=== PATIENT | female | born 1985 | race Caucasian/White ===

== ENCOUNTER 2021-02-18 09:00 | Outpatient (RCR) | payer MEDICAID, SELFPAY ==
[2021-02-11 09:48] VITALS: BMI 52.2
--- NOTE | 2021-02-18 09:00 | BH.SGPN.GN ---
Behaviors/Verbalizations/Mental Status: []Client alert and oriented, casually dressed. Eye contact poor. Motor activity appropriate. Speech slowed. Affect flat, mood anxious and dysthymic. Thoughts linear, logical, no signs of hallucinations or delusions. Reviewed client?s symptom tracker, no risk or thoughts of suicide ideation, plan, or intent as of 02/18/21. Client Response/Progress/Benefit: []Client responded well to session, engaged throughout and participated in group discussion. Client reported feeling ?anxious, nervous, and scared? this morning. Client reported feeling anxious about her drive home from IOP. Benefited from group as client gained feedback from other group members on ways to improve anxiety on her drive home. Client stated she would listen to calming music on her drive. Client appeared anxious as she had short responses to questions and did not appear ready to elaborate. Client reported her goal for IOP is to manage her anxiety and depression symptoms so she can return to work to better provide for her family. Will continue IOP to promote the use of healthy coping skills, improve daily functioning, and prevent decompensation. Narrative Note: []
--- NOTE | 2021-02-18 10:10 | BH.SGPN.GN ---
Behaviors/Verbalizations/Mental Status: []Client alert and oriented, casually dressed and fair grooming. Eye contact poor. Motor activity restless. Speech within normal limits. Affect constricted, mood depressed and anxious. Thoughts linear, logical, no signs of hallucinations or delusions. Client Response/Progress/Benefit: []Pt passive participant AEB pt providing limited input throughout discussion, appeared to listen to group discussion AEB pt nodding at others comments. Pt connected with the topic of resilience and agreed with the group that it is possible to become more resilient. Listened to group identify the positive and negative forces in life that impact a person?s resilience. Listened to discussion about barriers to resiliency. Pt stated environment impacts ability to be resilient. Explained if you are treated poorly it is hard to be resilient. Pt seemed to benefit from increasing awareness of factors that influence personal resilience and understand importance of improving resiliency. Pt's first week in IOP. Pt to continue IOP to increase healthy coping, maintain safety and prevent decompensation. Narrative Note: []
--- NOTE | 2021-02-18 11:15 | BH.SGPN.GN ---
Behaviors/Verbalizations/Mental Status: []Client alert and oriented, casually dressed and groomed. Eye contact fair to good. Motor activity appropriate. Speech within normal limits. Affect constricted, mood depressed and anxious. Thoughts linear, logical, no signs of hallucinations or delusions. Client Response/Progress/Benefit: [] Client new to IOP tx. She responded well to session, mostly engaged AEB taking notes and listening throughout discussion. Client did not provide input but attentive during the discussion of how each resiliency component can help increase personal resiliency. Client took on a passive participatory role within the small group in identifying ways to practice each of the resiliency traits reviewed. Client took a participatory role within the activity and followed direction as group worked to identify strategies for improving group?s ability to reach identified goal.. Appeared to benefit from group as client discussed how resiliency impacts daily functioning. Declined to share the personal resilience trait she identified as wanting to improve upon. Will continue IOP tx to improve coping skill repertoire, reduce depression, and prevent decompensation. Narrative Note: []
--- NOTE | 2021-02-18 14:43 | BH.MTP_ITS ---
Master Treatment Plan - Patient Information Program Physician:: Dr. Gail Barrientos Primary Therapist:: CHRISTA Gayle - Estimated LOS Estimated LOS (in weeks):: 6 Problem/Goal #1 - Problem/Goal #1 Stated Goal:: Client will reduce depressive symptoms, guilt, and hopelessness due to major depressive disorder. Description of Barriers: Unable to work due to stress, constant health anxiety about her children, and panic attacks, history of trauma, and negative thinking. Severe avoidance in which client does not like to drive or leave her home. Functional Impact: The patient is a 35-year-old single female with a history of depression and anxiety who was referred to the [facility] behavioral health IOP by her prior manager social services due to worsening mental health symptoms impacting ability to function. Reports primary stressors impacting mental health include anxiety about the pandemic and her son?s health. Client currently endorses daily panic attacks, avoidance of leaving house or driving, ruminations, and constant worries. Client also endorses a depressed mood, hopelessness, worthlessness, guilt, decreased concentration, low energy, low motivation, and isolative behaviors. Client denies active suicidal ideations, plan, or intent. Client?s symptoms are interfering with her ability to work as she has been unemployed due to anxiety since 2019, impacting her ability to take care of herself, and impact her relationships. Goal Relevant Strengths/Supports: Client presents as motivated, kind, and open- minded to learning new skills. Lives with her sister and reports her mother is also supportive. Children are her protective factors. - Objectives Objective #1 Stated Objective: Client will learn and utilize 2-3 healthy coping strategies to better manage depressive symptoms as shown by a reduced DSM-5 scores for depression. Interventions: Through group and individual sessions, therapist will help client identify triggers and warning signs of depression and emotional dysregulation including emotional, physical, and behavioral changes. Therapist will teach client various coping skills to manage her symptoms and give client tangible resources to use to regulate emotions. Therapist will use cognitive restructuring techniques and help client gain awareness of negative thoughts that reinforce guilt and depression. Therapist will provide psychoeducation on maintenance cycles and help client learn ways to break unhealthy maintenance cycles. Therapist will help client incorporate behavioral activation and assist client in setting SMART goals. Discharge Criteria: Client will have met this goal when he can report learning and using at least 2 coping skills to manage depressive symptoms. Additionally, client will have met this goal when his depressive symptoms have reduced on the DSM-5 scale. Target Date: 04/01/21 Review Date: 03/18/21 Objective #2 Stated Objective: Client will identify at least 2-3 negative self-talk messages used to reinforce negative core beliefs and replace thoughts with positive, realistic messages. Interventions: Therapist will help client identify distorted, negative beliefs about self and replace with more realistic, affirmative messages. Therapist will use CBT to help client increase insight to the connection between thoughts, emotions, and behaviors. Therapist will encourage client to practice thought challenging. Discharge Criteria: Client will have achieved this goal when can verbalize at le ast 2 negative self-talk messages and effectively replace those thoughts with affirmative messages. Target Date: 04/01/21 Review Date: 03/18/21 Problem/Goal #2 - Problem/Goal #2 Stated Goal:: Client will reduce anxiety and panic symptoms while increasing ability to function on daily basis. Description of Barriers: Unable to work due to stress, constant health anxiety about her children, and panic attacks, history of trauma, and negative thinking. Severe avoidance in which client does not like to drive or leave her home. Functional Impact: The patient is a 35-year-old single female with a history of depression and anxiety who was referred to the [facility] behavioral health IOP by her prior manager social services due to worsening mental health symptoms impacting ability to function. Reports primary stressors impacting mental health include anxiety about the pandemic and her son?s health. Client currently endorses daily panic attacks, avoidance of leaving house or driving, ruminations, and constant worries. Client also endorses a depressed mood, hopelessness, worthlessness, guilt, decreased concentration, low energy, low motivation, and isolative behaviors. Client denies active suicidal ideations, plan, or intent. Client?s symptoms are interfering with her ability to work as she has been unemployed due to anxiety since 2019, impacting her ability to take care of herself, and impact her relationships. Goal Relevant Strengths/Supports: Client presents as motivated, kind, and open- minded to learning new skills. Lives with her sister and reports her mother is also supportive. Children are her protective factors. - Objectives Objective #1 Stated Objective: Client will identify 2-3 anxiety/panic triggers and 2 coping skills to use when feeling anxious to manage anxiety as shown by decreasing her DSM-5 scores for anxiety. Interventions: Therapist will provide education on anxiety, avoidance behaviors, and maintenance cycles. Therapist will help client explore personal symptoms and warning signs of anxiety. Therapist will teach client coping skills to improve emotional regulation, mindfulness, and distress tolerance to help client cope with anxiety in the moment. Discharge Criteria: Client will have accomplished this goal when she can identify at least 2 triggers and report using 2 coping skills to manage anxiety. Additionally, client will have accomplished this goal when her DSM-5 scores show a reduction for anxiety. Target Date: 04/01/21 Review Date: 03/18/21 Objective #2 Stated Objective: Client will identify 2-3 cognitive distortions that lead to rumination and learn 2-3 ways to manage these thoughts to better manage anxiety Interventions: Therapist will provide education on the most common cognitive distortions and teach client the connection between thoughts, emotions, and feelings. Therapist will assist client in identifying, challenging, and replacing dysfunctional thoughts with positive, more realistic thoughts. Therapist will use CBT and DBT techniques to help client gain awareness of thinking errors and learn how to more effectively handle negative thoughts. Therapist will also use self-compassion to help client set more realistic expectations for herself. Discharge Criteria: Client will have accomplished this goal when can identify at least 2 cognitive distortions and at least 2 coping skills to manage negative thoughts. Target Date: 04/01/21 Review Date: 03/18/21
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
--- NOTE | 2021-02-18 14:44 | BH.MDN_ITS ---
Multi-Disciplinary Note - Note 30-min Individual Time Started:: 12:08 Date: 02/18/21 Purpose of session/treatment goals addressed:: The purpose of this session was to gather information on client's current stressors, symptoms, and treatment goals. Another goal was to build rapport and provide psychoeducation. Eye Contact:: Fair Motor Activity:: Appropriate Appearance:: Casual Speech:: Appropriate, Soft Mood:: Anxious, Depressed Affect:: Constricted, Congruent Thoughts:: Linear, Logical, No evidence of hallucinations/delusions noted Staff Interventions:: Therapist used active listening and open-ended questions to explore client's current stressors, symptoms, mental health treatment history, and explore treatment goals. Therapist used strengths-based approaches to build rapport and provide emotional support. Therapist provided psychoeducation on Anxiety. Client Response:: Client responded well to session, open to meeting with therapist. Client stated she has been in therapy on various occasions in the past but has found this to be ineffective as she feels her counselors never truly listened to her or ?had other things that were more of a priority?. Discussed struggling to trust therapy and others as a result of prior negative experiences. Shared often feeling her needs are not important and struggling with negative self-talk and low self-esteem. She expressed that this his impacted her ability to complete occupational tasks as she often struggles with significant intrusive thoughts regarding her job performance. Shared anxiety about her work performance has led to calling off work on multiple occasions and ultimately losing her job in the past. Additionally, client notes significant anxiety about being away from her three children as she is a single mother and has limited support. Client explained that her son has multiple medical issues which increases her anxiety about being away from the home. Reported ?I self- sabotage. I get anxious about being away from my son and I call off work. I?ve even used self-harming to get a doctor?s note so I could have a reason to call off?. Denies any recent self-harming episodes since 2019. Denies any current active SI, plan, or intent as of this date. Shared struggling to identify any healthy coping skills she currently uses. Reports her mother is her only support. Client identified current treatment goals to be: improve daily functioning, improve self-esteem, as well as reduce anxiety and daily panic sx in order to return to work. Client receptive to emotional support and encouragement. Receptive of psychoeducation provided on anxiety and safety be haviors. Risks/Concerns:: Client denies any active suicidal ideations, plan, and intent as of 02/18/21. Protective factors include her children. Reports motivation to improve sx management. Progress Toward Goals/Plan:: Client's first week of IOP, reports she is trying to be more comfortable in the treatment environment as she is often anxious about being in groups with others. Reports willingness to continue working to improve comfort in group environment. Client endorses a depressed mood, low self-esteem, ruminations, daily panic, and constantly feeling anxious. Client's symptoms have been impacting her ability to work and ability to engage with others. Will continue IOP tx to prevent decompensation, reduce intensity of symptoms, and improve daily functioning. Time Stopped:: 12:33
--- NOTE | 2021-02-20 09:15 | BH.NA_ITS ---
Physical Data - Vital Signs Pulse Rate: 62 Blood Pressure: 127/64 - Height/Weight Height: 1.75 m Weight:: 149.685 kg Weight in Pounds: 330.0 lbs Current Medication Compliance - Medication Compliance Do you take your medication as prescribed?: Yes Nutritional History - Appetite Nutritional Instructions:: If client shows signs of a swallowing problem, weight change of 10 pounds or more in the last month, or is on a diabetic diet, the physician will review and request a dietitian consult, as appropriate. All unintentional weight loss will be referred to the physician for decision on need for dietitian consult. Describe your appetite:: Fair Additional nutritional information:: Client reports weight loss after bariatric surgery in August 2020. Functional Assessment - Sleep Pattern Describe any problems with sleeping: Client states she sleeps about 5-6 hours per night. - Activities Motor Activity:: Functional Sensory/Communication Assess - Vision Problems Do you have any vision problems?: Glasses - Communication Problems Do you have difficulty understanding what people are saying?: No Medical Problems/History - Cardiac Conditions Cardiovascular: Hypertension, Hyperlipidemia - Metabolic Conditions Metabolic: Diabetes - Gastrointestinal Conditions Gastrointestinal: Dyspepsia Comments:: IBS - Pain Assessment Do you have acute or chronic pain?: No - Family History Family History: Family History (Last Reviewed 11/26/20 @ 08:[address] Villa Hanson MD) Other Anemia Anxiety Arthritis Asthma Autoimmune disorder Bleeding disorder Cancer Depression Diabetes High cholesterol Hypertension Kidney disease Ovarian cancer Seizures Suicide attempt Surgical History - Surgical History Have you had any surgeries? If so, list type and date:: Yes - bariatric surgery 08/2020, cyst removal Substance Abuse - Substance Abuse Please describe substance abuse in the last 30 days:: Client denies alcohol, tobacco or drug use. Client states she occasionally drinks tea with caffiene. Mental Status Summary - Mental Status Significant Findings/Observations on Appearance and Mood:: Client is alert and oriented x4. Client is casually groomed. Client is wearing a mask due to pandemic. Client makes poor eye contact. Client's voice is normal rate, but soft volume at times. Client answers questions minimally when asked. Client makes logical associations with normal processing. Client denies delusions/hallucinations. Client denies SI. Suicide Assessment - Suicidal Ideation Are you currently or have you been suicidal in the past?: Yes - denies SI Suicidal Intentional Rating Scale (SIRS): Suicidal thoughts (past) Physician Notification: If Active suicidal thoughts/Will not contract for safety is checked, contact physician and document in the Physician Notification section below. Past Psychiatric History - MH Treatment Hx Past Psychiatric Medications:: Celexa, Topamax, Ambien, Ativan Age of first mental health symptoms: Client states she was diagnosed with anxiety/depression many years ago. Describe (age, circumstance, etc) any past hospitalizations: Suicide attempt 14 years ago. Current providers for mental health treatment (counselor, psychiatrist, manager case management, etc.): CM at [facility]. Fall Risk Assessment - Age Age: Less than 60 - Mental Status Mental Status: Willing & able to ask for assistance when needed - Physical Status Physical Status: No problems - Impairments Impairments: None - Elimination Elimination: Continent AND independent - Gait or Balance Gait or Balance: Walks independently - Hx of Falls History of falls in the past 6 months: No known history - Medications/Substances Psychotropics:: Antidepressants Others:: Antihypertensives Medications/substances used within the past 24 hours or ordered to administer: 1-2 of the medications/substances listed above - Total Score Total Points:: 1 RN Summary of Impressions - Impressions Recommendations: Include psychiatric and medical issues, treatment planning recommendations, and discharge planning needs. Impressions: Psychiatric Issues: Major depressive disorder, recurrent, severe without psychosis; generalized anxiety disroder, health anxiety - Level of Care How do the client's current symptoms and functional deficits support need for this level of care?: Client was referred to IOP by keycase assembler for mental health impacting her ability to function. Client states her anxiety and depression symptoms have been worsening lately. Client reports high anxiety about leaving her house, states she gets panic attacks at times when she has to leave or house or even at home around certain family members. Client reports SOB and chest pressure with panic attacks. Client reports a history of self-harm, stating the last time she hit her wrist on stuff to hurt herself was about 1.5 years ago. Client has many small scabs on her arms presently and is picking at scabs during assessment. Client reports increased anxiety about driving. Client states she did have increased anxiety about work, and has not worked in 1.5 years. Client endorses isolation, hopelessness, anhedonia, and self-sabotage behavior regarding the idea of working. Client denies SI. IOP will promote gains and prevent further decompensation while providing social support and skills training.
[2021-02-20 10:02] VITALS: BP 127/64; PULSE 62
--- NOTE | 2021-02-20 11:10 | BH.SGPN.GN ---
Behaviors/Verbalizations/Mental Status: []Client alert and oriented, casually dressed, hygiene appeared to be tended to. Eye contact fair. Motor activity appropriate. Speech within normal limits. Affect constricted, mood dysthymic. Thoughts linear, logical, no signs of hallucinations or delusions. Client Response/Progress/Benefit: []Client engaged participant AEB client taking notes during discussion and listened attentively to peers. Participated in group discussion on the various areas of self-care, benefits, and types of self-care activities for each area. Client completed worksheet in which client identified current self-care practices and what self-care activities client wants to start using. Client reported she will focus on improving social self-care as client believes this will help client connect with her children which will also improve her mood. Client stated she will do this by scheduling an activity to do with her kids that is outside. Appeared to benefit from reflecting on the area of self-care client can improve and setting a small goal. First week of IOP tx. Will continue IOP tx to prevent decompensation, improve daily functioning, and increase healthy coping skills. Narrative Note: []
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
--- NOTE | 2021-02-20 12:34 | BH.DR.ITP ---
Initial Treatment Plan - Patient Information Visit Information: ADMISSION DATE: EXPECTED LOS: 4-6 weeks - Problems/Symptoms Problem #1:: Depression Symptom:: Sadness, crying, anhedonia, hopelessness, decreased sleep, low energy level, decreased concentration, guilt Problem #2:: Anxiety Symptom:: Worry, rumination, avoidance, nightmares, flashbacks, panic attacks
--- NOTE | 2021-02-22 09:00 | BH.SGPN.GN ---
Behaviors/Verbalizations/Mental Status: []Client alert and oriented, casually dressed. Eye contact fair. Motor activity appropriate. Speech within normal limits. Affect constricted, mood anxious and dysthymic. Thoughts linear, logical, no signs of hallucinations or delusions. Reviewed client?s symptom tracker, no risk or thoughts of suicide ideation, plan, or intent as of 02/22/21. Client Response/Progress/Benefit: []Client responded well to session, engaged throughout and participated in group discussion. Client reported feeling ?anxious and worried? this morning. Client reported needing to set a boundary with her sister as her sister often drops her children off at client?s house without asking for permission and it interrupts client?s personal time homeschooling her own children. Client reported other dynamics that impact their relationship as her sister lives next door and is also client?s landlord. Client reported being fearful to set a boundary with her sister as she is afraid of being kicked out. Benefited from group as other group members gave positive feedback and insight to client and her stressors. Progress noted as client was vulnerable and shared her stressors with group. Will continue IOP to promote the use of healthy coping skills, improve daily functioning, and set appropriate boundaries with sister. Narrative Note: []
--- NOTE | 2021-02-22 10:10 | BH.SGPN.GN ---
Behaviors/Verbalizations/Mental Status: []Client alert and oriented, casually dressed and groomed. Eye contact good. Motor activity appropriate. Speech within normal limits. Affect congruent, mood depressed and anxious. Thoughts linear, logical, no signs of hallucinations or delusions. Client Response/Progress/Benefit: []Client was an engaged participant AEB taking notes and contributing to discussion. Connected with group topic of perspective and the impacts of one?s perspective on mental health. Client noted struggling with societal stigma impacting her perspective of self. Client worked with the group to identify how a negative perspective can impact mental health which included: self-fulfilling prophecy, avoiding or giving up on treatment, not opening up to others, and withdrawing or isolating. Client reported low self-esteem and increased avoidance as result of negative perspective. Client appeared to benefit from increasing understanding of mental health benefits of a positive perspective and potential consequences to progress when perspective is negative. Progress noted in improved engagement in tx environment. Continues to struggle with combating distortions and avoidance. Client will continue IOP tx to promote gains, improve self-confidence, improve healthy coping, and prevent decompensation. Narrative Note: []
--- NOTE | 2021-02-22 11:10 | BH.SGPN.GN ---
Behaviors/Verbalizations/Mental Status: []Eye contact is good. Alert and oriented. Motor activity is appropriate. Appearance is casual. grooming is appropriate. Speech is Appropriate. Mood is dysthymic. Affect is dysthymic. Thoughts are linear and logical. No evidence of psychosis or hallucinations. Client Response/Progress/Benefit: []Pt engaged participant AEB pt providing input throughout session, listening attentively to peers and completing strengths exploration handout. Pt did struggle to identify strengths and client recognizes that she tends to disqualify her positives and be her ?own worst critic.? Pt shared some of the strengths she identified were patience, common sense, and empathy. Pt stated these strengths will help client?s mental health recovery by reducing frustration with self, gaining awareness, and practicing self-compassion. Pt seemed to benefit from increased awareness of personal strengths and improved understanding how perspective can impact view of self. Pt is to continue IOP tx to prevent decompensation, improve mood stability, and learn healthy coping skills. Narrative Note: []
--- NOTE | 2021-02-25 09:05 | BH.COMM ---
Communication Note - Communication with Client Communication Note: Pt cancelled group today. States that her daughter is ill and cannot make it.
--- NOTE | 2021-02-27 10:09 | BH.COMM ---
Communication Note - Communication with Client Communication Note: Spoke with pt. Her daughter was tested for COVID yesterday and they are awaiting results. Per protocol asked her to remain home to negative test. Pt has no symptoms
--- NOTE | 2021-03-06 11:08 | BH.SGPN.GN ---
Behaviors/Verbalizations/Mental Status: []Client alert and oriented, appearance is casual, but client reports not showering. Eye contact good. Motor activity appropriate. Speech within normal limits. Affect flat, mood dysthymic. Thoughts linear, logical, no signs of hallucinations or delusions Client Response/Progress/Benefit: []Client responded well to session as evidenced by client listening attentively to others and receptive to coping skills suggested by peers. Client identified warning signs for crisis and gained further awareness of earliest warning signs. Client used the warning signs: crying more frequently, feeling disconnected, and not taking care of herself to create personal crisis plan. Client?s action plan included: walking, healthy distractions, bathing, connecting with nature, setting small goals, and affirmations. Client plans to keep her crisis plan in her IOP binder and share it with her sister. Client appeared to benefit from creating a crisis action plan and increasing self-awareness. Client will continue IOP tx to prevent decompensation, improve self-care/daily functioning, and reduce avoidance behaviors. Narrative Note: []
--- NOTE | 2021-03-06 11:50 | PCM.BH.PN_ITS ---
Progress Note Progress Note: History of Present Illness/Interim History: [] The patient is a 35-year-old single female who is seen in follow-up at the [facility] health IOP program. I last saw the patient 2 weeks ago and at that time Wellbutrin XL was added to her medications. The patient says that she feels more motivated lately to be able to get things done at home. Her mood is still depressed and she has some fatigue at times. She is crying much less than she did before. She remains anxious about health issues, Covid pandemic, and driving. She almost did not come today because there was snow on the ground but she was able to drive. She feels the IOP program may be helping her but she missed last week because her kids were sick. So she has only attended for her initial week of the IOP program. She still admits to occasional feelings of hopelessness and worthlessness. She is sleeping about 6 hours a night. She does have MARIA ISABEL and uses CPAP for this. She denies suicidal ideation, passive thoughts of , plan for suicide, homicidal ideation, hallucinations, delusions or symptoms of valentina. Current Psychiatric Medications: [] Celexa 40 mg p.o. daily (x1 year); Wellbutrin XL 150 mg p.o. every morning (x2 weeks now) Mental Status Examination: [] The patient is an obese 35-year-old female who is seen wearing a mask due to the Covid pandemic and is casually dressed and groomed with good hygiene. She has no psychomotor agitation or retardation. Eye contact is good. Speech is normal rate and rhythm and fluent with no pressure. Speech is of more normal volume today. Mood is depressed. Affect is constricted. Thought process is goal-directed and organized. Thought content: There is no evidence of thoughts of , suicidal ideation, homicidal ideation, hallucinations or delusions. Judgment is intact. Insight is limited. Impulsivity is moderate. Diagnoses: [] [place] I: [] Major depressive disorder, recurrent, severe without psychosis; generalized anxiety disorder [place] II: [] Deferred [place] III: [] MARIA ISABEL, obesity and status post gastric sleeve bariatric surgery [place] IV:[]] Primary support, work and financial issues Plan: [] The patient will continue the IOP program in behavioral health at [facility] as the structure, support, education, individual and group therapy will hopefully prevent worsening of the patient's symptoms. She felt safe during the interview and if it anytime she does not feel safe she will let us know or go to the emergency room. The risks, options, possible side effects and complications of the medications were discussed with the patient and she understands and accepts these. She will continue on her current medications. No medication changes were made today as she is only been on the Wellbutrin for 2 weeks. She will continue to follow-up with her outpatient medical and psychiatric providers and I will see the patient in follow-up in 1 to 2 weeks.
--- NOTE | 2021-03-06 11:59 | PCM.BH.PN ---
Progress Note Progress Note: History of Present Illness/Interim History: [] Patient is an 21-year-old who is seen in follow-up at the [facility] behavioral health IOP program. I last saw the patient about a month ago. Patient at that time was given doxepin to help her sleep. The patient states that the doxepin helped her sleep about 6 to 8 hours a night on average. She feels much better and describes her mood as euthymic and not depressed now. She denies any thoughts of self-harm in the past few weeks. Her energy level is better also. She denies any purging. She also denies passive thoughts, suicidal or homicidal ideation, hallucinations, delusions. The patient feels that the IOP program has definitely benefited her greatly. She feels she has learned skills to manage her mental health issues. Current Psychiatric Medications: [] Effexor XR 150 mg p.o. daily (x6 weeks); BuSpar 15 mg p.o. twice daily; Lamictal 50 mg p.o. daily (on this for about 7 weeks); doxepin 6 mg p.o. nightly (x1 month). Mental Status Examination: [] Patient is an 20-year-old female who is seen wearing a mask due to the Covid pandemic and is casually dressed and groomed with good hygiene. She has no psychomotor agitation or retardation. Eye contact is good and speech is normal rate and rhythm and fluent with no pressure. Mood is euthymic. Affect is full and normal. Thought process is goal-directed and organized. Thought content: There is no evidence of suicidal ideation, homicidal ideation, hallucinations, delusions or thoughts of self-harm. Judgment is intact. Insight is improving. Impulsivity is Diagnoses: [] [place] I: [] Major depressive disorder, recurrent, severe without psychosis (resolving); generalized anxiety disorder; eating disorder, NOS [place] II: [] Probable borderline personality disorder [place] III: [] Thoracic outlet syndrome bilaterally [place] IV:[]] Primary support, school, work issues Plan: [] The patient will be discharged today from the IOP program at [facility] as she has improved greatly in her mental health status. She felt safe during the interview and if it anytime she does not feel safe she will let us know or go to the emergency room. No medication changes were made today and the risk, options, possible complications and side effects of the medications were again discussed with the patient and she understands and accepts these. The patient will follow up with her outpatient medical and psychiatric providers. Prescription refills were sent in today for doxepin and Lamictal.
--- NOTE | 2021-03-06 15:17 | BH.MDN ---
Multi-Disciplinary Note - Note 45-min Individual Time Started:: 10:45 Date: 03/06/21 Purpose of session/treatment goals addressed:: To work on goal #1 obj #1 of client's tx plan. Eye Contact:: Good Motor Activity:: Appropriate Appearance:: Disheveled - client reports not showering in 2 weeks, Casual Speech:: Appropriate, Soft Mood:: Anxious, Depressed Affect:: Congruent Thoughts:: Linear, Logical, No evidence of hallucinations/delusions noted Staff Interventions:: Explored client's current stressors, symptoms, and triggers while providing emotion validation and supportive feedback. Provided psychoeducation on various types of self-care and gave client a self-care wheel to complete for homework. Reviewed areas in which client feels she struggles and does well with practicing self-care. Used WA techniques to identify current barriers and establish a small self-care goal for the week. Client Response:: Client responded well to session, open to meeting with therapist. Client shared feeling proud of herself for being able to drive to [facility] this morning despite it snowing last night. Discussed often struggling with anxiety when the weather is anything but [place]. Reflected on use of positive self-talk and taking breaks as needed during the commute. Additionally, shared urges to cancel this morning due to ?just not wanting to do anything anymore?. Discussed often struggling with avoidance and ?self-sabotaging? behaviors when her depression and anxiety are high. Client noted history of talking herself out of doing things as she has ?what if? thoughts about leaving her children. Client receptive of psychoeducation on different areas of self-care and connected to discussion about relationship between self-care and mental health and wellness. Client identified areas of self-care she is currently practicing and areas she feels she struggles with. Noted that she is attending therapy, fostering a healthy relationship with her children, making sure she exercises daily, and taking time nightly to watch her favorite television show. Expressed struggling significantly in meeting basic self-care needs such as personal hygiene, finding time to take breaks throughout the day, and working on improving emotion regulation skills. Responded well to working with therapist to identify barrier to self-care and identifying how current self-care difficulties are impacting her mental health. Did well to identify small self-care goal for the week of taking a shower at least twice. Noted this will improve self-confidence, give her time for herself, and improve mood. Client will work on completing self-care wheel for homework. Risks/Concerns:: Client denies any suicidal ideations, plan, or intent as of 03/06/21. Future oriented. Progress Toward Goals/Plan:: Client reports limited progress as she has only attended two days of IOP tx thus far. Discussed that her children?s health and her anxiety often present as a barrier to attendance. Indicates struggling with depressive sx, anhedonia, and negative self-talk over the past week. Notes improved anxiety as she was able to successfully manage anxious thoughts and drive to IOP this morning. Continues to report ruminations, constant worry, and distorted thinking patterns which reinforce anxiety. Client will continue IOP tx to reduce anxiety and depression, improve self-care, combat distortions, and increase motivation. Time Stopped:: 11:22
--- NOTE | 2021-03-07 09:00 | BH.SGPN.GN ---
Behaviors/Verbalizations/Mental Status: [] Eye contact is good. Motor activity is appropriate. Appearance is casual. Speech is soft. Mood is anxious. Affect is flat. Thoughts are linear and logical. No evidence of psychosis. Reviewed daily check in sheet and no reports of suicidal ideations or intent. Client Response/Progress/Benefit: [] Pt participated when prompted. Emotion for today is tried. Shared that her goal in to work on her self-care. Shared that she spoked with one of her daughters about helping her with this goal which was beneficial. She believes that her children often manipulate her to do things for them and often times the kids conflicts impact her mental health. She is being more assertive with those around her. Admits to hx of trouble justifying self-care in the past however recent group helped combat some of her myths on self-care. Progress noted per pt report. Will continue in IOP to improve functioning, increase healthy coping, and to stabilize mood. Narrative Note: []
--- NOTE | 2021-03-07 10:10 | BH.SGPN.GN ---
Behaviors/Verbalizations/Mental Status: []Eye contact is good. Alert and oriented. Motor activity is appropriate. Appearance is casual. grooming is appropriate. Speech is Appropriate. Mood is anxious. Affect is congruent. Thoughts are linear and logical. No evidence of psychosis or hallucinations. Client Response/Progress/Benefit: []Client responded well to session, engaged, and participated in discussion and group activity. Client identified her barrier of managing emotions as the difficulty to identify the emotion she feels. The group identified the importance of communication and the effect communication has on managing emotions as it prevents suppressing emotions, losing control, and gaining support from others. Progress noted as client took a leadership role in the activity and said it ?put her in the position to react as if she was in a crisis situation.? Client reacted calmly to problem solve and met the goal with peers. Client appeared to benefit from group as client connected with her peers and gained the importance of managing emotions to improve daily functioning. Will continue IOP to promote the use of healthy coping skills, increase healthy boundaries, and improve daily functioning. Narrative Note: []
--- NOTE | 2021-03-07 11:10 | BH.SGPN.GN ---
Behaviors/Verbalizations/Mental Status: []Client alert and oriented, neatly dressed, but hair appeared unkempt. Eye contact good. Motor activity appropriate. Speech within normal limits. Affect constricted, mood dysthymic. Thoughts linear, logical, no signs of hallucinations or delusions. Client Response/Progress/Benefit: []Client engaged in session AEB client providing limited input during discussion and completed worksheet. Attentively listening during psychoeducation on 4 zones of regulation and able to identify feelings and behaviors for each zone. Worked with group to identify coping skills one can use to support self in each zone. Client reported belief client is in the yellow/red zones today as client shared she has a sense of ?impending doom that something bad will happen.? Client plans to practice self-care today to try and reduce anxiety. Client received encouragement from peers who can empathize with how challenging self-care can be. Benefited from increased education on zones of regulation or stages of alertness for emotions and healthy coping skills to use for each zone. Will continue IOP tx to prevent decompensation, increase application of coping skills, and improve functioning. Narrative Note: []
--- NOTE | 2021-03-08 10:05 | BH.SGPN.GN ---
Behaviors/Verbalizations/Mental Status: []Client alert and oriented, casually dressed and appropriately groomed. Eye contact good. Motor activity appropriate. Speech within normal limits. Affect congruent, mood anxious, Thoughts linear, logical, no signs of hallucinations or delusions. Client Response/Progress/Benefit: []Client receptive of session, providing input and taking notes throughout. Client agreed with the quote and shared how communicating can be an illusion when we assume the other person can read our non-verbals and know what we are feeling. Group identified potential barriers to healthy communication as: anxiety, fear of other?s reactions, making assumptions, shutting down, and fear of being vulnerable. Noted a personal communication barrier as shutting down, expressing that this actually prevents others from being able to help. Stated this often results in feeling further depressed. Client remained attentive and contributed during psychoeducation on the four communication styles, providing input throughout. Benefited from increased insight regarding own communication style and impacts this has on overall mental health. Client will continue IOP to promote the use of healthy coping skills, improve communication with supports, and challenge negative thoughts. Narrative Note: []
--- NOTE | 2021-03-08 11:10 | BH.SGPN.GN ---
Behaviors/Verbalizations/Mental Status: []Client alert and oriented, casually dressed and groomed. Eye contact fair. Motor activity appropriate. Speech within normal limits. Affect constricted, mood depressed.. Thoughts linear, logical, no signs of hallucinations or delusions. Client Response/Progress/Benefit: []Client engaged participant AEB client providing input throughout discussion and listened attentively to peers. Client reported she is mostly a passive communicator. Client reported this communication style causes negative consequences on her relationships and mental health. Client stated she withdraws from others, feels numb and can't express herself. Client stated this will result in her becoming passive-aggressive. Recognizes both communication styles often make problems worse. Attentive during psychoeducation about DEAR MAN (Describe, Express, Assert, Reinforce, Mindfulness, Appear confident, Negotiate) interpersonal communication skill. Client identified her communication goal is to focus on the skill of mindfulness by asserting when her boyfriend tries to bring up the past when having a conversation about a current situation. Client seemed to benefit from increased insight into how her communication style impacts her mental health and relationships. Will continue IOP tx to continue use of healthy coping, improve self-esteem and prevent decompensation.
--- NOTE | 2021-03-11 14:19 | BH.COMM ---
Communication Note - Communication with Client Communication Note: Pt rescheduled today as she overslept and was unable to attend as a result. Expressed plans to attend IOP tx on Thursday, , and Thursday of this week as a result.
--- NOTE | 2021-03-12 08:12 | BH.MDN_ITS ---
Multi-Disciplinary Note - Note 30-min Individual Time Started:: 09:37 Date: 03/12/21 Purpose of session/treatment goals addressed:: To work on goal #2 of client's tx plan Eye Contact:: Good Motor Activity:: Appropriate Appearance:: Disheveled - reports she has not showered this week., Casual Speech:: Appropriate Mood:: Anxious, Irritable, Depressed Affect:: Full Thoughts:: Linear, Logical, No evidence of hallucinations/delusions noted Staff Interventions:: Therapist provided emotional support and asked open-ended questions to gain insights regarding current stressors and symptoms. Therapist taught client different grounding skills and practiced these with client in session. Therapist provided psychoeducation on general sleep hygiene and the impact anxiety has on sleep and overall functioning. Introduce cognitive distortions for client to begin reviewing for homework. Client Response:: Client responded well to session, open to meeting with therapist. Client reports feeling agitated and having several negative thoughts as she did not sleep well last night and was experiencing increased anxiety prior to leaving for IOP group. Client discussed her anxiety is often worse after not sleeping at night and explained that lately she has been waking up 10- 15x per night. Client receptive of discussion reviewing healthy sleep hygiene practices. Reports practicing several of these including: sleeping with white noise, listening to meditation to fall asleep, and keeping the room cool and dark. Identified aspects of current routine potentially hindering sleep. Client willing to learn and practice different mindfulness and grounding skills to begin using at night to aid in falling back asleep. Client reviewed guided meditation, deep breathing, and progressive muscle relaxation. Client willing to begin using these before bed and when waking at night. Client also reported increased negative self-talk in the mornings when her anxiety is high. Receptive of discussion on relationship between self-care, anxiety, and vulnerability to distorted thought patterns. Client recognizes her self-care continues to impact mental health as she struggles with completing basic self-care practices. Connected to discussion on distorted thought patterns and is willing to learn more about how to manage anxious, intrusive thoughts. Client receptive to homework to practice coping skills and begin reviewing distortions. Risks/Concerns:: Client denies any suicidal ideations, plan, or intent as of 03/12/21 Progress Toward Goals/Plan:: Client reports connecting with group environment and has increased overall insight levels of warning signs and triggers for anxiety and depression. Discussed struggling to incorporate skills learned in daily life. Discussed ongoing difficulties with self-care and managing physical symptoms of anxiety. She continues to struggle with poor self-esteem, avoidance, constant worries about the future, and racing thoughts. Will continue IOP tx to prevent decompensation, learn healthy coping skills, and improve functioning. Time Stopped:: 10:04
--- NOTE | 2021-03-12 10:10 | BH.SGPN.GN ---
Behaviors/Verbalizations/Mental Status: [] Eye contact is good. Motor activity is appropriate. Appearance is disheveled. Speech is Appropriate. Mood is anxious. Affect is congruent. Thoughts are linear and logical. No evidence of psychosis. Client Response/Progress/Benefit: [] Pt was an active participant in group discussion and activity. Attentive during psychoeducation. Along with peers he provided insight and feedback on the definition of stress which included; negative reaction to changes, chaos, racing thoughts, physical pains, dissociation, and exhaustion. Also provided feedback on the benefits of stress which included; motivation, improved mood, helps us complete goals, and can lead to accomplishments. Completed stress jar with primary stressors being negative self-talk, rent, employment, and toxic people. Benefited from group by identifying distress vs eustress as well as current stressors and their impact. Will continue in IOP to prevent decompensation, decrease panic, increase healthy coping. Narrative Note: []
--- NOTE | 2021-03-12 11:18 | BH.SGPN.GN ---
Behaviors/Verbalizations/Mental Status: []Client alert and oriented, casually dressed and groomed. Eye contact fair to good. Motor activity WNL. Speech within normal limits. Affect congruent, mood anxious and depressed. Thoughts linear, logical, no signs of hallucinations or delusions. Client Response/Progress/Benefit: []Client engaged in session AEB listening attentively to others, providing input, and taking notes throughout. Client remained attentive during discussion about the 4 A's of managing stress and discussed connecting with the various benefits of each. Client stated she wants to work on stressor of her mental health and anxiety about what other people think regarding her mental health struggles. Client reported she is going to practice accepting that it may take time to see improvements with her mental health and will require effort on her part. Additionally, discussed wanting to adapt a more positive mindset by beginning to identify and challenge unkind self-talk statements. Client seemed to benefit from increased awareness of the impact of stress on mental health and increasing repertoire of stress management strategies. Client is to continue treatment to continue focusing on improving self-care, develop a strong coping repertoire, begin challenging distorted thoughts, and prevent decompensation. Narrative Note: []
--- NOTE | 2021-03-14 10:05 | BH.SGPN.GN ---
Behaviors/Verbalizations/Mental Status: []Client alert and oriented, neatly dressed and groomed. Eye contact good. Motor activity appropriate. Speech within normal limits. Affect constricted, mood depressed. Thoughts linear, logical, no signs of hallucinations or delusions. Client Response/Progress/Benefit: []Pt was an active participant in group discussion and was attentive during psychoeducation. Provided input on the quote of the day and shared how one?s thoughts impact their mood. Group was primarily educational and introduced and gave examples of the 10 cognitive distortions. Pt provided some examples of personal experiences for certain cognitive distortions. Pt connected with labeling sharing thoughts such as ?I?m worthless.? Benefited from education and increased awareness of cognitive distortions and role that they play in negative thoughts and emotions. Pt reports that she has had negative thoughts about herself for many years. Will continue IOP tx to prevent decompensation, improve mood stability, and learn healthy coping skills. Narrative Note: []
--- NOTE | 2021-03-14 11:05 | BH.SGPN.GN ---
Behaviors/Verbalizations/Mental Status: []Client alert and oriented, neatly dressed and groomed. Eye contact good. Motor activity appropriate. Speech within normal limits. Affect constricted, mood dysthymic. Thoughts linear, logical, no signs of hallucinations or delusions. Client Response/Progress/Benefit: []Client was an active participant AEB client providing input throughout session and completing worksheet. Client attentive during psychoeducation and additional discussion on cognitive distortions. Client engaged while group practiced reframing example thoughts on the board. Client then worked to identify, label, and reframe a distorted thought of her own. Client used the thought ?why try when I will fail again.? Client labeled this as the overgeneralization and jumping to conclusions distortions and stated it makes client feel worthless, hopeless, and anxious. Client reframed this thought to ?I am going to try my best and it may not route inspector the same.? Client endorsed numerous cognitive distortions that she will need to continue combatting during IOP tx. Client seemed to benefit from practicing identifying and reframing distorted thoughts. Will continue IOP tx to prevent decompensation, improve daily functioning, and combat negative self-talk. Narrative Note: []
--- NOTE | 2021-03-15 10:00 | BH.SGPN.GN ---
Behaviors/Verbalizations/Mental Status: [] Eye contact is good. Motor activity is appropriate. Appearance is disheveled. Speech is Appropriate. Mood is depressed. Affect is flat. Thoughts are linear and logical. No evidence of psychosis Client Response/Progress/Benefit: [] Pt participated at times during group discussion. Active during group activity. Attentive during psychoeducation on fear and the impact that fear of failure can have. Pt and peers provided insight on thoughts that contribute to fear of failure such as; I'm not good enough, I won't succeed, I know I can't/couldn't do it, Why try ... I will fail, and I could have done that better. Pt and peers were able to identify the benefits to failure in an attempt to reframe. Group identified that failure can be a way to; learn what to do differently, increase resiliency, increase self-compassion, and problem-solve. Pt benefited from psychoeducation on the impact of fear of failure and changing perspective on how to view setbacks. Pt will continue in IOP to maintain safety, increase healthy coping, and improve functioning. Narrative Note: []
--- NOTE | 2021-03-15 11:08 | BH.SGPN.GN ---
Behaviors/Verbalizations/Mental Status: []Client alert and oriented, casually dressed and groomed. Eye contact fair to good. Motor activity WNL. Speech within normal limits. Affect congruent, mood anxious and dysthymic. Thoughts linear, logical, no signs of hallucinations or delusions. Client Response/Progress/Benefit: []Client responded well to session, engaged and actively participating throughout. Client completed the fear of failure worksheet and reported that fear of failure has kept client from going back to school to pursue a career in the past. Client able to identify barriers that reinforce personal fear of failure which included: distorted thoughts, past failures, guilt, fear of other?s reactions, and toxic people. Client attentive during discussion of the different strategies to help overcome fear of failure. Identified personal strategies to include: creating a plan, setting boundaries, positive self-talk, and keeping track of personal wins. Client appeared to benefit from learning ways to overcome fear of failure. Will continue IOP tx to reinforce healthy coping skills, continue to improve ability to manage emotions, and maintain stability. Narrative Note: []
== END 2021-03-15 23:59 ==
LOC: BHIOP 09:00
PROVIDERS: PCP Physician Assistant; Referring Provider Psychiatry & Neurology Psychiatry; Visit Provider Psychiatry & Neurology Psychiatry
DX: F33.2 Major depressive disorder, recurrent severe without psychotic features (principal); F41.1 Generalized anxiety disorder; F50.9 Eating disorder, unspecified; G54.0 Brachial plexus disorders; Z79.899 Other long term (current) drug therapy
CPT/HCPCS: 90792; H0035; H2012; H2020; 90832; 90834

== ENCOUNTER 2021-03-20 09:00 | Outpatient (RCR) | payer MEDICAID, SELFPAY ==
[2021-02-11 09:48] VITALS: BMI 52.2
[2021-03-16 00:52] VITALS: BP 127/64; PULSE 62
--- NOTE | 2021-03-20 09:00 | BH.SGPN.GN ---
Behaviors/Verbalizations/ Eye contact is poor. Motor activity is appropriate. Appearance is casual. Speech is Appropriate. Mood is anxious. Affect is flat. Thoughts are linear and logical. No evidence of psychosis. Reviewed daily check in sheet and no reports of suicidal ideations or intent. Mental Status: [] Pt participated only when prompted. Kept her head down and avoided eye contact. Could not identify any mental health wins. Emotion for today is Mixed emotions. Her goal was to increase self-care however did not accomplish because she feels to guilty and doesn't want to take time away from her kids. Peers discussed common mytsh associated with self-care and also discussed beenfits to self-care to encourage patient. Limited progress noted. Benefited from group feedback. Will continue in IOP to prevent decompensation, increase healthy coping, and improve functioning. Client Response/Progress/Benefit: [] Narrative Note: []
--- NOTE | 2021-03-20 10:05 | BH.SGPN.GN ---
Behaviors/Verbalizations/Mental Status: []Eye contact is good. Motor activity is appropriate. Appearance is casual. Speech is Appropriate. Mood is anxious, depressed. Affect is congruent. Thoughts are linear and logical. No evidence of psychosis. Client Response/Progress/Benefit: []Pt was an active participant in group discussion and activity. Attentive and provided input during discussion on benefits and examples of healthily social supports. Client expressed feeling she does not have any healthy supports and struggled to challenge these thoughts. Was able to identify some supportive environments however. Group noted benefits of strong social supports as: feel less alone, hold us accountable, provide different perspective, encouragement, and help us through providing a skill or insight we might not. Client engaged in discussion on barriers to using support system. Identified a personal barrier to using her supports as feeling like a burden, not making her mental health a priority, and lack of communication. Continues to struggle with asking for help and distorted thoughts that she does not deserve to receive help from others. Able to see the impact of support and its benefits during activity and challenges of accomplishing tasks w/o proper support. Benefited from awareness of barriers to support as well as importance of support in mental health wellness. Narrative Note: []
--- NOTE | 2021-03-20 11:13 | BH.TPR ---
Treatment Plan Review Date of Admission:: 02/18/21 Date of Treatment Plan Review:: 03/20/21 Admitting Diagnoses:: Major depressive disorder, recurrent, severe without psychosis; generalized anxiety disorder Current Diagnoses:: Major depressive disorder, recurrent, severe without psychosis; generalized anxiety disorder Patient's Response to Treatment:: Client's response to treatment has been mostly positive AEB DSM-5 scores and self-report of improvements in insight and awareness regarding mental health. Since [facility] admission, Client's attendance has been mostly consistent and client; however, client did miss a week due to her daughter being ill. Client has additionally been late to group on multiple occasions, often struggling to call and cancel or inform staff when running late. When in attendance client is an active participant. Client takes notes, listens to peers, and contributes to discussion. Client is receptive in individual sessions and has completed most of the homework provided. Continues however to struggle with skill application, consistent use of self-care, and thought challenging outside of tx environment. Status of Current Problems and Symptoms: Problems are ongoing. DSM-5 scores indicate a 4 point increase in overall scores. This is reflected increased scores for depression and symptoms of valentina. Client symptoms may continue to be reinforced by negative core-beliefs, guilt, difficulties implementing self-care, and distorted thinking patters. Self-reports difficulties in consistent skill application which may further reinforce depressive sx. Current stressors include desire to return to working, past trauma, limited supports, and anxiety about her children?s health. Problem #1 Problem Name:: Depression Status of Goals:: Objective 1- partially complete. Can identify some healthy coping skills, but reports ongoing depressive symptoms. Symptoms include difficulties connecting with others, increased negative thoughts, and feelings of detachment. Client self-reports struggling to implement the self-care skills she has learned and continues to have low motivation, and significant distorted thinking patterns which further reinforce depression. Able to identify distorted thoughts impacting self-esteem and reinforcing depression. Continues to struggle with consistent thought challenging. Continues to struggle with asking supports for help or setting boundaries to advocate for own mental health needs. Client continues to appear resistant to changing current behaviors which reinforce depression as well. Objective 2- incomplete. Client DSM-5 score for depression have increased by 25% at review. Client still struggles with skill application, negative thinking, and depression impacting daily functioning. Team Recommendations:: Team recommends ongoing work of tx goals, development of increased social support, and continue to work on improving motivation to change via opposite action and behavioral activation skills. Problem #2 Problem Name:: Anxiety Status of Goals:: Objective 1- not complete. Client reports knowledge of physical warning signs for anxiety and potential triggers causing her anxiety. She can identify calming skills for improving anxiety management, However self-reports difficulties in consistent application of calming skills. Client has however been actively working to prevent from engaging in avoidance behaviors AEB continuing to drive to IOP treatment despite anxiety about doing so. Obj 2 - Not complete. Client able to identify some distortions that reinforce anxiety with support; however, continues to struggle in effectively doing so outside tx environment. Continues to struggle with avoidance of addressing distortions which reinforce anxiety. Continues to endorse significant distortions reinforcing anxiety about her children's health. Team Recommendations:: Team recommends ongoing work of tx goals, development of increased social support, and continue to work on improving motivation to change via opposite action and behavioral activation skills.
--- NOTE | 2021-03-20 12:05 | PCM.BH.PN_ITS ---
Progress Note Progress Note: History of Present Illness/Interim History: [] The patient is a 35-year-old single female who is seen in follow-up at the [facility] health IOP program. I last saw the patient 2 weeks ago and at that time no medication changes were made as the patient had just started her Wellbutrin XL. The patient today states that the dose of Celexa that she was on was only 20 mg and not 40 mg as she told me previously. Patient states that although she had improved she in the last several days her mood is more depressed and she feels a big lack of motivation again. She states that she is still procrastinating a lot at home and endorses hopelessness and worthlessness much of the time. She is sleeping about 5 to 6 hours a night on average and is using her CPAP for her MARIA ISABEL. She denies any passive thoughts of , suicidal or homicidal ideation, hallucinations, delusions or symptoms of valentina. She feels the IOP program is helping her somewhat and that she is learning skills but she has not made great progress. Current Psychiatric Medications: [] Wellbutrin XL 150 mg p.o. every morning (x4 weeks now); Celexa 20 mg p.o. daily (x1 year). Mental Status Examination: [] Patient is an obese female who is seen wearing a mask due to the pandemic and is casually dressed and groomed with good hygiene. She has no psychomotor agitation or retardation. Eye contact is good and speech is normal rate and rhythm and fluent with no pressure. Mood is depressed and affect is constricted to flat. Thought process is goal-directed and organized. Thought content: There is no evidence of thoughts of , suicidal or homicidal ideation, hallucinations or delusions. Judgment is intact. Insight is limited. Impulsivity is moderate. Diagnoses: [] [place] I: [] Major depressive disorder, recurrent, severe without psychosis; generalized anxiety disorder [place] II: [] Deferred [place] III: [] MARIA ISABEL, obesity, status post gastric sleeve bariatric surgery [place] IV:[]] Primary support, work and financial issues Plan: [] Patient will continue the IOP program in behavioral health at [facility] as the structure, support, education, and group therapy will hopefully prevent worsening of the patient's symptoms which might require hospitalization. The patient felt safe during the interview and if it anytime she does not feel safe she will let us know or go to the emergency room. The risks, options, possible side effects and complications of the medications were discussed with the patient and she understands and accepts these. At the patient's request the Celexa will be increased to 40 mg p.o. daily. She will continue her same dose of Wellbutrin XL. She may discharge this week and if that is the case then she will follow-up with her outpatient psychiatric providers and medical providers.
--- NOTE | 2021-03-21 10:00 | BH.SGPN.GN ---
Behaviors/Verbalizations/Mental Status: [] Eye contact is good. Motor activity is appropriate. Appearance is disheveled. Speech is Appropriate. Mood is depressed. Affect is flat. Thoughts are linear and logical. No evidence of psychosis. Client Response/Progress/Benefit: [] Pt was an active participant in group discussion. Attentive during psychoeducation on different types of anxiety disorders. Along with peers provided insight on the definition of anxiety as well as the impact of anxiety which include; poor sleep, not completing tasks, poor concentration, impacts relationships, impacts work, and decreases appetite. Pt identified her physical symptoms of anxiety which are vision changes, sortness of breath, and heart racing. Worked with peers to identify safety behaviors which included avoidance, self-harm, distraction, lashing out, and substance use. Benefited from increased insight and awareness from group discussions. Will continue in IOP to prevent decompensation, stabilize anxiety, and improve functioning. Narrative Note: []
--- NOTE | 2021-03-21 11:15 | BH.SGPN.GN ---
Behaviors/Verbalizations/Mental Status: []Client alert and oriented, casually dressed and groomed. Eye contact fair. Motor activity appropriate. Speech within normal limits. Affect constricted, mood dysthymic and anxious. Thoughts linear, logical, no signs of hallucinations or delusions. Client Response/Progress/Benefit: []Client was an active participant AEB pt providing input and listening attentively to peers. Reviewed anxious thoughts and safety behaviors client engages in that reinforce anxiety. Identified personal safety behaviors to include: lashing out, sleeping, shutting down, alcohol, shopping, over schedule, listening to sad music, and distraction. Attentive during psychoeducation on mindfulness coping skills and their impact on mental health wellness. Group was able to identify self-soothing and mind-based coping skills which included: 5-senses, meditation, deep breathing, journaling, and body scan. Client would like to work on calming skill of walking. Appeared to benefit from increasing repertoire of anxiety reduction skills. Client will continue IOP tx to increase healthy coping skills, improve mood stability, and prevent decompensation. Narrative Note: []
--- NOTE | 2021-03-22 10:11 | BH.SGPN.GN ---
Behaviors/Verbalizations/Mental Status: []Client alert and oriented, casually dressed and groomed. Eye contact good. Motor activity appropriate. Speech within normal limits. Affect congruent, mood euthymic. Thoughts linear, logical, no signs of hallucinations or delusions. Client Response/Progress/Benefit: []Client engaged in session, contributing more positive reflections to discussion which is progress, and taking notes throughout. Client identified focusing on barriers or potential obstacles and self-doubt as things that keep people stuck from solving problems and improving their mental health. Client participated in the discussion of problem-solving examples and the barriers that come with this. Client shared she has struggled with poor self-esteem, low motivation, and focusing on potential obstacles prevent from effectively problem solving in the past. Contributed to group discussion on the benefits of effective problem-solving on mental health, sharing improved self-esteem and reduced long-term anxiety as a potential benefit. Client worked with peers to brainstorm the components of A,B,C,D,E problem solving method. Client seemed to benefit from learning problem solving methods and identifying potential barriers to effective problem-solving. Reports struggling with significant distorted thinking patterns, low motivation, and negative thinking. Will continue IOP tx to prevent decompensation, promote more consistent healthy skill implementation, and improve sx management. Narrative Note: []
--- NOTE | 2021-03-22 11:12 | BH.SGPN.GN ---
Behaviors/Verbalizations/Mental Status: []Eye contact is good. Motor activity is appropriate. Appearance is casual. Speech is Appropriate. Mood is dysthymic. Affect is congruent. Thoughts are linear and logical. No evidence of psychosis. Client Response/Progress/Benefit: []Pt responded well to session as evidenced by actively contributing and taking on a leadership role during challenge activity, listening to peers, and contributing thoughts to session. Pt stated the problem she wants to work on addressing is negative self-talk. Pt identified skills she can utilize to work on this problem include: use more positive affirmations, set boundaries with toxic supports, opposite action, and use grounding skills when feeling anxious rather than telling self ?I can?t?. Discussed that working to solve this problem will aid in improving self-care, self-esteem, and increase confidence in own abilities. Pt seemed to benefit from identifying strategies to problem solve through a problem currently impacting mental health. Recommended continues IOP tx to further improve healthy coping and self-care, reduce distorted thinking patterns, and improve mental health stability. Narrative Note: []
--- NOTE | 2021-03-22 15:15 | BH.MDN_ITS ---
Multi-Disciplinary Note - Note 30-min Individual Time Started:: 09:37 Date: 03/22/21 Purpose of session/treatment goals addressed:: To work on goal #1 of client's tx plan and identify small self-care goals for the weekend. Eye Contact:: Good Motor Activity:: Appropriate Appearance:: Disheveled, Casual Speech:: Appropriate Mood:: Anxious, Dysthymic Affect:: Congruent Thoughts:: Linear, Logical, No evidence of hallucinations/delusions noted Staff Interventions:: Therapist asked open-ended questions to gain insights regarding current stressors, symptoms, and treatment goal progress. Therapist commended client for areas of progress and encouraged continued skill application. Reviewed importance of self-care in ongoing progress and used [place] to aide client in identifying and addressing barrier to continued progress in this area. Assisted client in developing a small self-care goal for the weekend. Client Response:: Client responded well to session, open to meeting with therapist. Client reports feeling more positive and less anxious today than she usually does in the morning. Attributes this to more consistently practicing the calming skill she has learned in tx to her daily life. Expressed finding deep breathing, the 5-senses, and taking mindful walks as most helpful. Discussed setting aside time to go on a mindfulness walk while her children were at their grandparents earlier in the week. Shared finding this to be more relaxing as she could spend time relaxing without worrying about her children being okay while she is away. Noted wanting to spend more time on independent self-care but feels she does not have a way to secure more time alone. Acknowledges the importance of consistent self-care in continued mental health wellness and stability, though often focuses on barriers to being able to do so. Resistant to having her children more regularly visit with her mother or stay with someone else while client takes time to practice self-care. Additionally, discussed that she recently ?backslid on personal care?. Explained struggling to maintain goal of showering weekly, brushing her teeth twice daily, and washing her face once per day. Noted primary barriers as ?laziness, fatigue, and negative thoughts?, often telling herself ?you?re not going to see anyone anyhow. So, why bother??. Client did well to identify importance of consistent self-care for herself rather than the benefit of others. Discussion on how client feels more confident when engaged in regular self-care. Able to identify ways to make self-care more enjoyable such as listening to relaxing music. Additional skills client identi fied to be helpful could be opposite action and positive affirmations. Established small self-care goal for weekend of showering once and washing face/brushing teeth twice. Risks/Concerns:: Client denies any suicidal ideations, plan, or intent as of 03/22/21 Progress Toward Goals/Plan:: Some improvements in anxiety management per pt report. Expressed improved ability to manage driving related anxiety and has been able to arrive to tx environment on time more consistently as a result. Client additionally reports working to better identify and challenge distortions; however, continues to struggle with this. Reports ongoing anxiety about the future, low motivation levels, difficulties with engaging in self- care, and poor self-esteem which continue to impact ability to function at baseline. Will continue IOP tx to prevent decompensation, continue to promote healthy coping skills, and improve functioning. Time Stopped:: 10:01
--- NOTE | 2021-03-25 10:15 | BH.SGPN.GN ---
Behaviors/Verbalizations/Mental Status: []Client alert and oriented, casually dressed and groomed. Eye contact fair, looking down or at phone for much of session. Motor activity appropriate, restless. Speech within normal limits, minimal input provided. Affect constricted, mood depressed and agitated. Thoughts appearing distracted, no signs of hallucinations or delusions. Client Response/Progress/Benefit: []Pt receptive of being in group, however struggled to engage and appeared distracted by own thoughts throughout. Client was often looking at her phone and got up on several occasions. Tearful throughout. Difficulties in effectively engaging may have prevented client from internalizing much of group topic, though did well to re-engage near end of session and begin taking notes. Appeared to benefit from structure and supportive group environment. Pt to continue IOP to continue to promote use of healthy coping skills, improve anxiety management skills, and prevent decompensation. Narrative Note: []
--- NOTE | 2021-03-25 11:21 | BH.SGPN.GN ---
Behaviors/Verbalizations/Mental Status: []Client alert and oriented, casually dressed and groomed. Eye contact fair, looking down much of session. Motor activity appropriate. Speech within normal limits. Affect congruent, mood depressed. Thoughts linear, logical, no signs of hallucinations or delusions. Client Response/Progress/Benefit: []Client more engaged in session than prior group, however remaining passive throughout. Did well to actively listen and take notes. At times continuing to struggle with becoming distracted by own thoughts. Client declined to share strategy she could use to improve current conflict resolution approaches. Appeared to benefit from learning strategies to better manage conflict. Will continue IOP tx to continue to improve management of symptoms, improve healthy coping and emotion regulation, and improve daily functioning. Narrative Note: []
--- NOTE | 2021-03-25 15:17 | BH.MDN_ITS ---
Multi-Disciplinary Note - Note 30-min Individual Time Started:: 09:35 Date: 03/25/21 Purpose of session/treatment goals addressed:: Client requested to meet with therapist to address recent stressor causing increased anxiety and negative thinking. Reviewed calming skills and strategies client can utilize to address anxiety in the moment. Eye Contact:: Fair Motor Activity:: Appropriate Appearance:: Casual Speech:: Appropriate Mood:: Anxious, Irritable, Depressed Affect:: Congruent Thoughts:: Linear, Logical, No evidence of hallucinations/delusions noted Staff Interventions:: Therapist provided a supportive and emotionally validating environment for client to process recent stressors resulting in increased anxiety and emotion dysregulation. Therapist gave empathic responses and provided supportive feedback. Aided client in challenging distorted thinking patterns. Used [place] techniques to identify barriers and begin eliciting change behavior. Client Response:: Client visibly upset and requested to meet with therapist this morning. Indicates feeling anxious, overwhelmed, and hopeless following a conversation with her case packer and sealer at [facility] regarding changes in expectations and requirements for client to receive álvarez assistance. Client reports being informed she is now required to attend work readiness courses in the [facility] on the days she is not attending the IOP program. Shared feeling frustrated and as though her mental health needs were not taken into consideration, as client has driving anxiety and this would require client to drive more than she is comfortable with. Noted becoming emotionally distraught when informed of the changes and became verbally upset with her case packer and sealer, ultimately hanging up on her. Discussed struggling to effectively vocalize her concerns or discuss potential accommodations as a result. Client expressed agitation with the requirements on several occasions and noted ?these classes aren?t going to help me, I?m wasting my time? and ?this has completely set me back?. Client perspective often impacted ability to identify ways the courses could be beneficial in improving readiness to return to work or assist with further providing opportunities to work on managing driving anxiety. After several lengthy conversations challenging distortions associated with state requirements, client expressed willingness to reach out to case packer and sealer to discuss potential accommodations and alternatives. Willing to review strategies client could utilize to aide in reducing anxiety while driving as well as in the moment anxiety. Reports willingness to work on reviewing and practicing identified calming skills for homework. Risks/Concerns:: Client denies any suicidal ideations, plan, or intent as of 5/10/21. Continues to be future oriented. Progress Toward Goals/Plan:: Client progress remains limited as she continues to struggle with emotion regulation regarding external situations/stimuli. Contin ues to struggle with identifying what is within her control and apply distress tolerance skills to manage emotions when experiencing unexpected setbacks. Struggles with resistance to change which further impacts mood stability and reinforces sx of anxiety and depression. Client continues to report significant driving anxiety, distorted thinking patterns, and difficulties in communicating with supports/advocating for own needs. Client will continue IOP tx to develop a stronger coping repertoire, improve mood management, and reduce sx intensity and severity. Time Stopped:: 10:10
--- NOTE | 2021-03-26 09:02 | BH.SGPN.GN ---
Behaviors/Verbalizations/Mental Status: []Pt eye contact fair, casually dressed, motor activity appropriate, speech normal rate and tone, mood anxious, constricted affect, thoughts linear and intact, no evidence of delusions or hallucinations. Patient indicated a 2/5, with 5 being severe, for suicidal ideation and a 2/5 for suicidal intent on daily symptom tracker. This is a decrease in her baseline. Client Response/Progress/Benefit: []Patient engaged participant as evidenced by sharing thoughts and feelings and listening attentively to peers. Patient stated she had a difficult weekend because being strongly encouraged to return to work. Patient reported she does not feel ready to return to work due to her significant anxiety about being trapped while at work. Patient stated she was able to use and healthy coping skills to help her manage self-harm thoughts like challenging negative thoughts and engaging her 5 senses. Patient stated she was able to reach out to her boss and now her boss is willing to work with her so she does not have to return to work so quickly. Patient reported some anxiety relief after talking to her boss. Progress noted with patient reporting use of healthy coping skills. Patient to continue IOP to continue using healthy coping skills, challenge disorder thought patterns, and prevent decompensation. Narrative Note: []
--- NOTE | 2021-03-26 10:10 | BH.SGPN.GN ---
Behaviors/Verbalizations/Mental Status: []Eye contact is good. Motor activity is appropriate. Appearance is casual. Speech is Appropriate. Mood is anxious and depressed. Affect is congruent. Thoughts are linear and logical. No evidence of psychosis. Client Response/Progress/Benefit: [] Pt was an engaged participant in group discussions and activity AEB providing input, listening attentively, and taking notes throughout. Worked with group to process quote, indicating that ?we can?t see progress and may get overwhelmed if we only look at the big picture and don?t recognize accomplishments along the way?. Worked with group members to identify the benefits of setting goals which include: sense of accomplishment, builds self-esteem, increases motivation, holds us accountable, and helps to measure progress. Worked with peers to identify the barriers to setting goals or things that keep us from accomplishing goals. Pt identified personal barrier to achieving goals as telling herself that she?s going to fail anyway so ?why bother? and distorted thinking patterns. Attentive during psycho-education on developing SMART (Specific, Measurable, Achievable, Realistic, Timely) goals. Benefited from education on the benefits of goal-setting and increased insight into skills to set realistic and attainable goals. Narrative Note: []
--- NOTE | 2021-03-26 11:10 | BH.SGPN.GN ---
Behaviors/Verbalizations/Mental Status: []Client alert and oriented, casual appearance, but hair was unkempt. Eye contact good. Motor activity appropriate. Speech within normal limits. Affect constricted, mood dysthymic and irritable. Thoughts linear, logical, no signs of hallucinations or delusions. Client Response/Progress/Benefit: []Client was engaged during discussion, did well to complete activity and process with the group. Client was willing to complete the worksheet in which she was challenged to develop a personal SMART goal. Client chose the goal to practice self-care for 10 minutes three times a week and to shower twice a week. Client stated this will benefit her as it will keep her clean, feel refreshed, and feel better about self. Client identified barriers which included: negative self-talk, excuses, lack of time, and all or nothing thinking. Client worked with her partner in group to identify solutions for her barriers, and they were able to identify a solution for each barrier. Benefited from this group by developing a short-term SMART goal related to mental health. Client continues to struggle with mood instability and lack of self-care. Client self-reports limited application of coping skills which could hinder progress. Will continue IOP tx to prevent further decompensation. Narrative Note: []
--- NOTE | 2021-03-27 09:00 | BH.SGPN.GN ---
Behaviors/Verbalizations/Mental Status: [] Eye contact is poor. Motor activity is appropriate. Appearance is disheveled. Speech is Appropriate. Mood is depressed. Affect is flat. Thoughts are linear and logical. No evidence of psychosis. Reviewed daily check in sheet and no reports of suicidal ideations or intent. Client Response/Progress/Benefit: [] Pt participated at times during the group discussion. Attentive. Mental health win was showing up on time to IOP. 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 Her goals continues to be self-care which she achieved by taking a shower yesterday. She has also allowed more time for herself. Went on walk with family as well which is healthy exercise. Emotion for today is hopeful. Progress noted per pt report. Benefited from group support and praise. Will continue in IOP to prevent decompensation, increase healthy coping, and to improve functioning. Narrative Note: []
--- NOTE | 2021-03-27 10:10 | BH.SGPN.GN ---
Behaviors/Verbalizations/Mental Status: []Client alert and oriented, casually dressed and groomed. Eye contact good. Motor activity appropriate. Speech within normal limits. Affect flat, mood dysthymic. Thoughts linear, logical, no signs of hallucinations or delusions. Client Response/Progress/Benefit: []Client engaged participant AEB listening to peers and providing to discussion. Client commented on the quote as well as unhealthy coping skills. Client stated learning to cope in healthy ways is important because ?there?s always going to be problems.? Client gave examples of unhealthy coping skills such as: minimizing problems, sleeping to avoid, and avoidance in general. Group shared that people tend to use unhealthy coping skills because they are easier and provide quick relief. Client participated in the group activity and connected that a healthy foundation of coping skills is composed of healthy internal and external coping skills. Client seemed to benefit from increased awareness of the importance of increasing healthy coping skills and consequences of utilizing unhealthy coping skills. Will continue IOP tx to increase use of healthy coping skills and improve daily functioning. Narrative Note: []
--- NOTE | 2021-03-27 11:06 | BH.COMM ---
Communication Note - Communication with Client Communication Note: Client approached this nurse about medications. Client states she picked up new prescription from seeing Dr. Barrientos last week (Celexa) and realized she actually had previously been taking Lexapro and has not been on Celexa to receive a dose increase. Discussed with Dr. Barrientos that client is currently taking Lexapro at home, not Celexa, and has not started new prescription of Celexa. Dr. Brarientos gave verbal order to increase client's Lexapro from 20mg to 30mg per day and not to start Celexa at all. Discussed same with client and she voices understanding. Prescription for Lexapro 30mg daily called in to [facility] in [place] per client's request.
--- NOTE | 2021-03-27 11:12 | BH.SGPN.GN ---
Behaviors/Verbalizations/Mental Status: [] Client alert and oriented, casually dressed and groomed. Eye contact fair to good. Motor activity appropriate. Speech within normal limits. Affect congruent, mood dysthymic. Thoughts linear, logical, no signs of hallucinations or delusions Client Response/Progress/Benefit: [] Client responded well to session, taking notes and contributing. Group discussed the different categories of coping skills which included distraction, emotional release, grounding, self-love, and thought challenging. ?Client participated in creating a coping skills ?menu? from the five categories of coping skills. Client's coping skill menu included: bike riding, spending time with her kids, running, listening to loud music, 5 senses, physical self-care, and positive self-talk. Client has been using bike riding and spending time with her kids but would like to work on beginning to run and use more consistent positive self-talk. Appeared to benefit from increasing repertoire of healthy coping skills. Will continue tx to further improve daily functioning, increase confidence, and combat distortions. Narrative Note: []
--- NOTE | 2021-03-28 09:00 | BH.SGPN.GN ---
Behaviors/Verbalizations/Mental Status: []client alert and oriented, disheveled appearance. Eye contact good. Motor activity appropriate. Speech within normal limits. Affect flat, mood depressed. Thoughts linear, logical, no signs of hallucinations or delusions. Reviewed client's symptom tracker, reports 2/5 for thoughts of suicide, but denied any intent or risk as of 03/28/21. Client Response/Progress/Benefit: C [] Client responded well to session, attentive and engaged. Client reports feeling tired and apathetic this morning. Client shared she has been feeling a lot of anxiety about the unknowns which is creating a lot of negative thinking and self-talk. Client admits that when her anxiety gets high, client engages in self-sabotaging behaviors. Client did have some positives today such as going to the park with her daughters and working in her garden. Client receptive to support offered by peers on how to manage anxiety and negative thinking. Client's progress continues to be limited as client admits it is hard for her to follow through with using self-care and thought challenging. Will continue IOP tx to prevent decompensation and increase application of coping skills. Narrative Note: []
--- NOTE | 2021-03-28 10:10 | BH.SGPN.GN ---
Behaviors/Verbalizations/Mental Status: [] Eye contact is good. Motor activity is appropriate. Appearance is casual. Speech is Appropriate. Mood is depressed. Affect is congruent. Thoughts are linear and logical. No evidence of psychosis. Client Response/Progress/Benefit: [] Pt was an active participant in group discussion and activity. Attentive during psychoeducation. Provided appropriate feedback. Pt along with peers were able to identify common emotions (both positive and negative) associated with change. Group was able to identify the benefits to making changes such as; personal growth, increased self-esteem, improve mindset, decrease stress, improve emotional health, increase healthy skills, and to get out of same old challenges. Pt and peers were also able to identify some obstacles to making changes which included; low motivation, lack of support, difficult to get out of comfort zone, fear of change, fear of the unknown, fear of repeating past, vulnerability, and asking for help. Pt benefited from group by increasing awareness of emotions and obstacles associated with making changes. Pt will continue in IOP to prevent decompensation, increase healthy coping, and improve functioning. Narrative Note: []
--- NOTE | 2021-03-28 11:15 | BH.SGPN.GN ---
Behaviors/Verbalizations/Mental Status: []Client alert and oriented, casually dressed and appropriately groomed. Eye contact fair. Motor activity appropriate. Speech within normal limits. Affect constricted, mood anxious. Thoughts linear, logical, no signs of hallucinations or delusions. Client Response/Progress/Benefit: []Client responded well to session AEB providing input at times during discussion, engaging in activity, and listening attentively to peers. Client contributed during psychoeducation on the change process and different emotions in each stage of change. Client reports belief she is currently in between contemplation and preparation stages of change. Client stated she is able to recognize that she has a problem but fear and anxiety of the unknown are barriers that can keep her from moving to preparing for change. client reported practicing healthy coping skills, self-reflection, and positive affirmations are things that can help her fully move to preparation stage of change. Appeared to benefit from identifying what stage of change client is in and identifying strategies to overcome barriers. Will continue IOP tx to increase use of healthy coping skills, challenge distorted thoughts and prevent decompensation.
--- NOTE | 2021-04-02 08:01 | BH.MDN_ITS ---
Multi-Disciplinary Note - Note 45-min Individual Time Started:: 10:43 Date: 04/03/21 Purpose of session/treatment goals addressed:: To work on goal #1 of client's tx plan through identifying and addressing distortions reinforcing sx of depression. Eye Contact:: Good Motor Activity:: Appropriate Appearance:: Disheveled, Casual Speech:: Appropriate Mood:: Depressed Affect:: Congruent Thoughts:: Linear, Logical, No evidence of hallucinations/delusions noted Staff Interventions:: Therapist used active listening and provided positive encouragement as client discussed implementing healthy self-care skills. Provided psychoeducation on the different types of distortions and helped client identify and begin challenging personal examples. Gave client a handout on a personal thought log to begin regularly identifying and challenging negative thoughts. Client Response:: Client responded well to session, open to meeting with therapist. Client shared she feels tired and anxious today and is unsure why. Noted that her son was sick the previous date but that she does not typically feel anxious when her children are ill. Client noted several positives including spending time practicing self-care via laying in a hammock, gardening, and beginning a running routine. Client noted that she continues to struggle with intrusive thoughts related to fear of the unknown, the future, and what others think of her. Described thoughts of ?What if others think I?m just lazy and faking it?? and ?what if I?m just sabotaging myself??. Receptive of discussion reviewing common distortions and noted connecting most with all or nothing thin kourtney, catastrophizing, and emotional reasoning. Worked with therapist to begin looking at evidence for and against her thoughts and practice reframing. Discussed that she has been journaling positives but has not been working to identify and address/challenge negative thought patterns. Reviewed thought log and expressed willingness to begin keeping a daily thought log to improve ability to challenge and reframe distorted thinking patterns. Risks/Concerns:: Client denies any suicidal ideations, plan, or intent as of 04/02/21. Future oriented. Protective factors. Progress Toward Goals/Plan:: Client is making progress AEB her report of applying healthy self-care skills, reduced driving anxiety, and an improved mood over the weekend. Client continues to report issues with sleep, anxious thoughts, and low motivation to change. Although her mood is improved today, client continues to struggle with managing her depression, negative thinking, an d feelings of wothlessness. Client will continue IOP tx to promote mood stability, improve daily functioning, and increase healthy coping skills. Time Stopped:: 11:23
--- NOTE | 2021-04-02 11:15 | BH.SGPN.GN ---
Behaviors/Verbalizations/Mental Status: []Client alert and oriented, casually dressed, hygiene appeared to be tended to. Eye contact fair. Motor activity appropriate. Speech within normal limits. Affect constricted, mood anxious. Thoughts linear, logical, no signs of hallucinations or delusions. Client Response/Progress/Benefit: []Client engaged participant AEB pt providing input during discussion, taking notes and listened attentively to peers. Client worked with group to identify what mental stigma has prevented them from doing. Group brainstormed strategies to combat social and perceived stigma which included: educating others, no longer joking about mental illness , being open about mental health, self-compassion and not reinforcing stigma with behaviors or labels. Pt shared to combat perceived stigma she will start journaling to learn more about herself. Appeared to benefit from increasing awareness of strategies to combat stigma. Will continue IOP tx to continue use of healthy coping, challenge distorted thought patterns and prevent decompensation. Narrative Note: []
--- NOTE | 2021-04-03 10:10 | BH.SGPN.GN ---
Behaviors/Verbalizations/Mental Status: []Client alert and oriented, casually dressed and groomed. Eye contact fair. Motor activity appropriate. Speech within normal limits. Affect constricted. Mood dysthymic. Thoughts linear, logical, no signs of hallucinations or delusions. Client Response/Progress/Benefit: []Pt responded well to session AEB pt providing input and listening attentively to peers. Worked with group to identify external barriers that can keep us stuck include: intrusive thoughts, anxiety, outside stressors, past trauma, environment, work place, and mental health. Worked with group to identify internal barriers that keep us stuck include: fear of failure, avoidance, negative self-talk, shut down, avoidance, sleep, using substances, and other unhealthy coping skills. Engaged in discussion about underlying thoughts behind what keeps people stuck. Pt shared her negative thoughts that keep her stuck include: why can't i just get over this, what if I fail, and I'm going to have a panic attack. Pt seemed to benefit from increased awareness of maintenance cycles. Pt to continue IOP to continue use of healthy coping, challenge distorted thoughts and prevent decompensation.
--- NOTE | 2021-04-03 11:15 | BH.SGPN.GN ---
Behaviors/Verbalizations/Mental Status: []Client alert and oriented, casually dressed, but hygiene was not tended to. Eye contact fair. Motor activity appropriate. Speech within normal limits. Affect flat, mood depressed. Thoughts linear, logical, no signs of hallucinations or delusions. Client Response/Progress/Benefit: []Client responded well to session, contributing to discussion and providing good feedback. Client appeared to connect with maintenance cycles and recognized how negative thinking can keep a person stuck. Client identified a negative thought that has kept client stuck. Client shared it is hard for her to challenge distortions because ?I have been made fun of my entire life.? Client?s negative thought was ?I?m lazy and worthless.? Client acknowledges this thought is unrealistic because it is not ?100% true 100% of the time.? Client shared this thought leads to self-harm, avoidance, and panic attacks. Client reframed this thought to ?I?m not lazy as I have proof I do things throughout the day.? Client shared reframing this thought may not change how much client believes it, but it would give her more motivation to keep trying. Client appeared to benefit from practicing challenging negative thinking. Will continue IOP tx to prevent decompensation, increase use of healthy coping skills, and reduce negative self-talk. Narrative Note: []
--- NOTE | 2021-04-03 12:03 | PCM.BH.PN_ITS ---
Progress Note Progress Note: History of Present Illness/Interim History: [] The patient is a 35-year-old single female who is seen in follow-up at the [facility] behavioral health IOP program. I last saw the patient 2 weeks ago and at that time there was some confusion over what medication she was taking: Celexa or Lexapro. The patient corrected the dose and then later informed us that she was on Lexapro and not Celexa as she had previously told us. Her Lexapro dose was increased to 30 mg about 1 week ago. The patient is tolerating the increase well. She states that she is does not feel much of a difference yet but she has only been taking it for 1 week. She has some sadness and and at times still feels overwhelmed but she feels that she is improving slowly. She endorses some hopelessness at times but much less than before. Sleep remains okay at 6 to 7 hours a night and she is using her CPAP for her apnea. She has rare thoughts of self-harm and did scratch herself on her dorsal part of her hands about 1 week ago. These appear to be small scratches that did do dried blood but no stitches were required. She last cut herself about a little over 1 month ago prior to this week. She denies any passive thoughts of , suicidal or homicidal ideation. She denies hallucinations or delusions. She is learning techniques to avoid self-harm and agrees to try some of these. The patient also has a history of hitting herself in the past but has not done this lately. Current Psychiatric Medications: [] Wellbutrin XL 150 mg p.o. every morning (x6 weeks now); Lexapro 30 mg p.o. daily (increased 1 week ago). Mental Status Examination: [] Patient is an obese female who is seen wearing a mask due to the pandemic and is casually dressed and groomed with good hygiene. She is cooperative during the interview and has no psychomotor agitation or retardation. Eye contact is good and speech is normal rate and rhythm and fluent with no pressure. Mood is depressed and affect is constricted. Thought process is goal-directed and organized. Thought content: There is no evidence of thoughts of , suicidal or homicidal ideation, hallucinations or delusions. There was some thoughts of self-harm and she did scratch herself superficially 1 week ago. Judgment is intact. Insight is limited. Impulsivity is moderate to high. Diagnoses: [] [place] I: [] Major depressive disorder, recurrent, severe without psychosis; generalized anxiety disorder [place] II: [] Strong cluster B traits [place] III: [] MARIA ISABEL, obesity, status post gastric sleeve bariatric surgery [place] IV:[]] Primary support, work and financial issues Plan: [] Patient will continue the IOP program in behavioral health at [facility] as the structure, support, education, and group therapy will hopefully prevent worsening of the patient's symptoms which might require hospitalization. The patient felt safe during the interview and if it anytime she does not feel safe she will let us know or go to the emergency room. The risks, options, possible side effects and complications of the medications were again discussed with the patient and she understands and accepts these. The patient states that she feels she is afraid to finish the IOP program. Discussed with the patient that she will not be discharged until we feel that she is doing reasonably well. No medication changes were made today as the Lexapro was only increased 1 week ago. I will see the patient in follow-up in several weeks.
--- NOTE | 2021-04-09 10:16 | BH.SGPN.GN ---
Behaviors/Verbalizations/Mental Status: []Client alert and oriented, casually dressed and grooming fair. Eye contact fair. Motor activity appropriate. Speech within normal limits, limited input. Affect constricted, mood dysthymic. Thoughts linear, logical, no signs of hallucinations or delusions Client Response/Progress/Benefit: [] Client remained a mostly passive participant but was engaged in session AEB client nodding throughout, taking notes, and listening attentively to peers. Client shared connecting with the importance of setting boundaries, nodding as others discussed impacts on mental health and relationships when you don?t. Expressed connecting with impact on self-care when we don?t set healthy boundaries. Client assisted group with identifying barriers to setting healthy boundaries. These included: fear of abandonment, fear of being vulnerable, self-doubt, discomfort, and feeling it?s ?too hard?. Shared a personal barrier as fear and negative thoughts of ?what?s the point? They aren?t going to listen to it anyway?. Listened and taking notes during discussion on different types of boundaries. Client seemed to benefit from increased awareness of how boundaries impact mental health. Will continue IOP tx to improve use of healthy coping, improve mood stability, and reduce mental health sx. Narrative Note: []
--- NOTE | 2021-04-09 11:19 | BH.SGPN.GN ---
Behaviors/Verbalizations/Mental Status: []Client alert and oriented, casual appearance . Eye contact fair. Motor activity appropriate. Speech within normal limits. Affect flat, mood dysthymic. Thoughts linear, logical, no signs of hallucinations or delusions. Client Response/Progress/Benefit: []Client responded well to session, connecting with peers and receptive to supportive statements. Client engaged during psychoeducation on the different boundary styles. Client reported she has both rigid and porous boundaries. Client identifies with having rigid emotional boundaries and having porous boundaries when it comes to helping others. Client stated she struggles to say ?no? which leads to feeling overwhelmed and being indecisive. Client participated in brainstorming strategies to improve boundary setting. Client wants to work on the strategy of self-reflection to gain insight to her needs and non-negotiables. Seemed to benefit from increased awareness of how current boundary style impacts mental health and learning different strategies to improve boundary style. Client to continue IOP tx to prevent decompensation, increase use of healthy coping skills, and improve daily functioning. Narrative Note: []
--- NOTE | 2021-04-10 09:02 | BH.SGPN.GN ---
Behaviors/Verbalizations/Mental Status: [] Client alert and oriented, casually dressed and groomed. Eye contact fair to good. Motor activity appropriate. Speech within normal limits. Affect congruent, mood euthymic and anxious. Thoughts linear, logical, no signs of hallucinations or delusions. Reviewed client?s symptom tracker, no risk for suicidal ideation reported as of 04/10/21 Client Response/Progress/Benefit: [] Client responded well to session, attentive and engaged. Client reports feeling hopeful this morning as she has been able to some areas of her own personal progress. Progress identified includes increased motivation to accomplish small tasks around the house, as well as planning a family vacation to [place]. Expressed being excited to have time with her children without the stressors of daily life. Client shared current skills used as opposite action, small goal setting, and making efforts to challenge negative thoughts. Identified that thought challenging has been particularly difficult but that she is making progress in this area and is at least increasing her personal awareness of common distortions she uses. Current stressor reported as fear of the unknown and worrying about having to return to work. Expressed knowing that work is something she needs to do but that she is unsure of what she wants to do with her life. Appeared to benefit from supportive group environment and reflecting on progress. Will continue IOP tx to promote gains, further improve mood stability and anxiety management, and improve daily functioning. Narrative Note: []
--- NOTE | 2021-04-11 10:20 | BH.SGPN.GN ---
Behaviors/Verbalizations/Mental Status: []Eye contact is good. Alert and oriented. Motor activity is appropriate. Appearance is casual. grooming is appropriate. Speech is Appropriate. Mood is anxious, dysthymic. Affect is congruent. Thoughts are linear and logical. No evidence of psychosis or hallucinations. Client Response/Progress/Benefit: [] Client responded well to session, engaged, and participated in discussion and group activity. Client connected with topic of managing emotions, noting ?If we bottle them, eventually we may just explode which means sometimes exploding on others. . Remained engaged throughout discussion on common barriers to effective emotion regulation which included: shutting down, lack of healthy coping skills, learned behaviors, toxic people/environment, and suppressing emotions. Identified personal barrier of managing emotions as negative thoughts, learned behaviors, and anxiety. Engaged in challenge activity highlighting the connection between communication and effective emotion regulation. Client appeared to benefit from gaining increased awareness on common emotion regulation barriers and impacts of ineffective emotion regulation on mental health and personal relationships. Will continue IOP to promote continued use of healthy coping skills, complete aftercare planning, continue to promote healthy change behaviors, and prevent decompensation. Narrative Note: []
--- NOTE | 2021-04-11 11:20 | BH.SGPN.GN ---
Behaviors/Verbalizations/Mental Status: []Client alert and oriented, casually dressed and fairly groomed. Eye contact fair. Motor activity appropriate. Speech within normal limits. Affect congruent. Mood euthymic. Thoughts linear, logical, no signs of hallucinations or delusions. Client Response/Progress/Benefit: []Client engaged in session AEB client providing input during discussion and completed worksheet. Attentively listening during psychoeducation on 4 zones of regulation and able to identify feelings and behaviors for each zone. Worked with group to identify coping skills one can use to support self in each zone. Client reported she most often is in a heightened state of alertness (yellow zone). Client stated she will go from yellow zone to a low state of alertness but has been better at recognizing when she is in the yellow zone and using healthy skills. Benefited from increased education on zones of regulation or stages of alertness for emotions and healthy coping skills to use for each zone. Will continue IOP tx to continue use of healthy skills, challenge distorted thoughts and prevent decompensation.
--- NOTE | 2021-04-16 08:12 | BH.MDN ---
Multi-Disciplinary Note - Note 30-min Individual Date: 04/16/21 Purpose of session/treatment goals addressed:: Reviewed progress on treatment plan in IOP. Finalized aftercare plans and reviewed outcome measurement. Eye Contact:: Good Motor Activity:: Appropriate Appearance:: Casual Speech:: Appropriate Mood:: Anxious Affect:: Congruent Thoughts:: Linear, Logical, No evidence of hallucinations/delusions noted Staff Interventions:: thought challenging, discharge planning, strengths perspective, reviewed DSM-5 Client Response:: Reviewed progress in IOP and on treatment plan goals. Pt was able to identify self-care skills, healthy coping skills for depression and self-harming urges, anxiety triggers, and calming skills for anxiety. According to DSM outcome measurement pt showed an overall symptom decrease of 10% since admission. She has seen a significant improvement in ability to function and no longer reports as significant an impact of mental health on functioning. She does still continue to struggle with anxiety and depression and is recommended ongoing counseling to continue to promote skill application and symptom improvement. Reports increased awareness of the need for positive self-talk and self-compassion, however admits that she does not engage in this as often as she would like. Risks/Concerns:: No risks or concerns noted. Denies SI, plan, or intent as of this date. Progress Toward Goals/Plan:: Progress noted. Pt has met treatment plan goals as noted above. DSM outcome measurements show a 10% decrease in overall symptoms since admission. DSM also shows a 25% reduction in scores on depression scale, 67% reduction on score in anger scale, and a 22% reduction on scores on the anxiety scales. Pt self-reports improved mood stability, increased self-care, and decrease in anxiety. Reports increased awareness and insight on health coping skills. Plan is to discharge as pt no longer meets criteria for IOP level of care.
== END 2021-04-15 23:59 ==
LOC: BHIOP 09:00
PROVIDERS: PCP Physician Assistant; Referring Provider Psychiatry & Neurology Psychiatry; Visit Provider Psychiatry & Neurology Psychiatry
DX: F33.2 Major depressive disorder, recurrent severe without psychotic features (principal); F41.1 Generalized anxiety disorder; Z79.899 Other long term (current) drug therapy
CPT/HCPCS: 99214; H0035; H2012; H2020; 90832; 90834; 90837

== ENCOUNTER 2021-04-16 09:00 | Outpatient (RCR) | payer MEDICAID, SELFPAY ==
[2021-03-19 16:16] VITALS: BMI 52.2
[2021-04-16 00:34] VITALS: BP 127/64; PULSE 62
--- NOTE | 2021-04-16 09:00 | BH.SGPN.GN ---
Behaviors/Verbalizations/Mental Status: [] Eye contact is good. Motor activity is appropriate. Appearance is casual. Speech is Appropriate. Mood is euthymic. Affect is full. Thoughts are linear and logical. No evidence of psychosis. Reviewed daily check in sheet and no reports of suicidal ideations or intent. Client Response/Progress/Benefit: [] Pt was an active participant in group discussion. Attentive. Provided appropriate feedback. Shared with the group that she today is her last day in [facility]. She was very optimistic today and about her future. She shared that the program was very helpful. She is planning on returning to work in the near future as she feels more prepared than she has been in the past to manage her anxiety at work. Also reports improved confidence in driving noting reduced fear and anxiety . My goals was to reduce my depression and anxiety and I accomplished that. Utilizing self-care strategies more frequently. Gave some advice for new members and was overall very optimistic about her aftercare plans. Progress noted per pt report. Benefited from group support and encouragement. Will discharge from [facility] today. Narrative Note: []
--- NOTE | 2021-04-16 10:10 | BH.SGPN.GN ---
Behaviors/Verbalizations/Mental Status: [] Eye contact is good. Motor activity is appropriate. Appearance is casual. Speech is Appropriate. Mood is euthymic. Affect is full. Thoughts are linear and logical. No evidence of psychosis. Client Response/Progress/Benefit: [] Pt was an active participant in group discussion and activity. Attentive during psychoeducation on factors that build resiliency. Worked with peers to to define resiliency in which they settled on bouncing back from difficult times. Along with peers also identified what could impact resilience which included; environment, upbringing, family MH beliefs, poverty, support, trauma, never learning coping skills, and emotions. Insight in how group experiential activity in which therapist induced chaotic environment impacted resilience and how group overcame it. Pt benefited by increasing awareness on the role of resilience in mental health and factors that can help build resiliency. Will will be discharged from [facility] today. Narrative Note: []
--- NOTE | 2021-04-16 11:14 | BH.SGPN.GN ---
Behaviors/Verbalizations/Mental Status: []Client alert and oriented, casually dressed and groomed. Eye contact good. Motor activity appropriate. Speech within normal limits. Affect constricted, mood dysthymic. Thoughts linear, logical, no signs of hallucinations or delusions. Client Response/Progress/Benefit: []Client responded well to session, engaged and participated throughout discussion. Client participated in the discussion of how each resiliency component can help increase personal resiliency. Client worked with group to identify ways to practice each of the resiliency traits reviewed. Client shared belief client has the resiliency trait of accepting that change is a part of living. Client stated she had to work hard at this, but client feels like she has been more flexible since starting IOP. Client would like to work on increasing resiliency by maintaining a hopeful outlook once she graduates. Client stated she can do this by challenging her perspective. Appeared to benefit from reflecting on already existing resiliency traits and learning how to strengthen resilience. will discharge from IOP tx today as client has received the full benefit of IOP tx and will transition to outpatient therapy. Narrative Note: []
--- NOTE | 2021-04-16 14:13 | BH.DS ---
Discharge Summary - Demographics Date of Admission:: 02/11/21 Discharge Date: 04/16/21 Presenting Problems at Admission:: The patient is a 35-year-old single female with a history of depression and anxiety who was referred to the [facility] behavioral health IOP by her prior caser in due to worsening mental health symptoms impacting ability to function. Reports primary stressors impacting mental health include anxiety about the pandemic and her son?s health. Client currently endorses daily panic attacks, avoidance of leaving house or driving, ruminations, and constant worries. Client also endorses a depressed mood, hopelessness, worthlessness, guilt, decreased concentration, low energy, low motivation, and isolative behaviors. Client denies active suicidal ideations, plan, or intent. Client?s symptoms are interfering with her ability to work as she has been unemployed due to anxiety since 2019, impacting her ability to take care of herself, and impact her relationships. Discharge Diagnoses:: Major depressive disorder, recurrent, severe without psychosis; generalized anxiety disorder Reason for Discharge:: Client has demonstrated some progress in treatment AEB a 10% overall decrease in symptoms as well as a significant improvement in functioning AEB client self-report of reduced driving anxiety, increased ability to attend financial assistance courses, and increased engagement in activities she enjoys. Client no longer meets criteria for IOP level of care and will transition to outpatient counseling and is encouraged to attend the DBSA group at [facility] regularly. - Treatment Progress During Treatment & Response: Client responded mostly well to treatment and made more progress within the last two weeks of treatment. Client experienced a setback about fpc through treatment where her anxiety was initially increased, tardiness worsened, and her mood was worse. However, client bounced back from this setback and successfully completed IOP, improving overall attendance and was more punctual than in past sessions. At discharge, client?s overall DSM-5 scores decreased by 10%, depression decreased by 25%, anxiety by 22%, and symptoms of anger by 67%. Client often struggled with attendance and externalization, which at times impacted her ability to remain fully present throughout groups. However, when in attendance and willing to engage, client was an active participant who contributed in group sessions and client?s engagement increased significantly when completing group activities. Client often struggled to challenge negative thoughts and set weekly goals during individual sessions; however, was able to make progress in both these areas and by the end of treatment was successfully engaging in regular exercise, more consistent with personal hygiene, and improving in her ability o identify and challenge distorted thoughts. Issues Still to be Addressed:: Client can benefit from ongoing therapy to strengthen coping skills, continue focus on creating new core beliefs, and increase mood stability. Client will benefit from strengthening her anxiety management skills to help successfully return to work and improve relationships. Discharge Recommendations/Instructions:: Client is recommended to follow up with her outpatient case manages through [facility]. She has also been connected with Chantelle Street at [facility] in [facility] for individual counseling as well as ongoing medication management. Additionally, client has been encouraged to attend the DBSA group at [facility]. Discharge Handout: Complete Discharge Handout with client on aftercare options and continuity of care.
== END 2021-04-16 14:03 | disposition home or self-care (01) ==
LOC: BHIOP 09:00
PROVIDERS: PCP Physician Assistant; Referring Provider Psychiatry & Neurology Psychiatry; Visit Provider Psychiatry & Neurology Psychiatry
DX: F33.2 Major depressive disorder, recurrent severe without psychotic features (principal); F41.8 Other specified anxiety disorders
CPT/HCPCS: H2020

== ENCOUNTER → 2021-05-28 | Outpatient (CLI) | payer MEDICAID, SELFPAY ==
[2021-05-28 08:27] VITALS: BMI 45.6
--- NOTE | 2021-05-28 09:00 | BRBX_PTH ---
PATIENT: PRECIOUS HUI LOC: [facility]#:[id number] AGE/SX: 35/F ROOM: RE05/28/[address]: Dr. Kareen Sanchez MD : [id number] BED: DIS: 05/28/2021 SPEC #: [id number] RECD: 05/28/21 10:50 STATUS: POP AUDELIA #: [id number] KELSEY: 05/28/21 09:[address]: Kareen Sanchez DEPT: SURGICAL PATHOLOGY RECD BY: Aniyah Sellers ENTERED: 05/28/21 11:21 SP TYPE: BREAST BX OTHR DR: TENISHA Mojica Tissues: A - Right breast, NOS B - Right breast, NOS Procedures: Surgery Specimen Level IV HEADER OPERATION: Right breast biopsy and skin biopsy PRE-OP DIAGNOSIS: Right breast mass and red skin; faint erythema at 2 o?clock on skin; ? 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 Right breast tissue 7 o?clock, 5 cm from nipple, B ? Right breast punch biopsy 2 o?clock, faint erythema MICROSCOPIC DIAGNOSIS A. Right breast tissue, 7 o?clock, 5 cm from nipple, core biopsy: A benign lymph node with reactive changes. Negative for atypia or malignancy. See comment. B. Right breast, 2 o?clock, punch biopsy: A piece of skin with underlying tissue with focal minimal chronic inflammation. Negative for malignancy. SJ:[place] 05/29/2021 COMMENT A. Breast tissue is not identified. Fragments of benign fibroadipose are also noted. Correlation with clinical findings and appropriate follow up are necessary. Case has been reviewed in consultation with Dr. Rivera who concurs with the above diagnosis. IDC:AM MICROSCOPIC DESCRIPTION Slides are reviewed. GROSS DESCRIPTION A - Received in fixative is one container labeled with the patient's name and designated right breast biopsy. The specimen consists of multiple irregular and elongated fragments of ricardo tissue that in aggregate measure 2.5 x 1.2 x 0.1 cm. The specimen is totally submitted in one cassette. B - Received in fixative is one container labeled with the patient's name and designated right breast skin. The specimen consists of a cylindrical fragment of ricardo tissue measuring 0.7 cm in length and 0.2 cm in diameter. The specimen is totally submitted in one cassette. / AM:[place] 05/28/21 TC:5 CPT: 37663 x2
== END | disposition home or self-care (01) ==
LOC: LABSPEC 10:55
PROVIDERS: PCP Physician Assistant; Visit Provider Surgery
DX: N63.10 Unspecified lump in the right breast, unspecified quadrant (principal); L53.9 Erythematous condition, unspecified
CPT/HCPCS: 88305